=== PATIENT | male | born 1995 | race Two or more races ===

== ENCOUNTER 2020-10-03 06:22 | Emergency (ER) | payer SELFPAY ==
[~2020-10-03] VITALS: Ht 167.6 cm; Wt 85.7 kg
[2020-10-03 08:38] LABS: Basophils # (auto) 0.1 10 ^3/uL (0-0.2); Basophils % (auto) 0.8 % (0.0-2.0); Eosinophils # (auto) 0.2 10 ^3/uL (0-0.8); Eosinophils % (auto) 3.4 % (0.0-7.0); Hematocrit 42.8 % (41.0-53.0); Hemoglobin 14.6 g/dL (13.5-17.5); Lymphocytes # (auto) 1.7 10 ^3/uL (0.4-5.4); Lymphocytes % (auto) 24.4 % (10.0-50.0); Mean Corpuscular Hemoglobin 30.2 pg (28.0-32.0); Mean Corpuscular Hgb Conc. 34.1 g/dL (32.0-36.0); Mean Corpuscular Volume 88.7 fL (80.0-100.0); Monocytes # (auto) 0.7 10 ^3/uL (0-1.3); Monocytes % (auto) 9.7 % (0.0-12.0); Neutrophils # (auto) 4.4 10 ^3/uL (1.6-8.6); Neutrophils % (auto) 61.7 % (37.0-80.0); Nucleated Red Blood Cells % 0.1 %; Red Blood Cells 4.83 10^6/uL (4.5-5.90); Red Cell Distribution Width 13.6 % (11.8-14.3); White Blood Cell 7.1 10^3/uL (4.4-10.8)
[2020-10-03 08:47] LABS: BUN/Creatinine Ratio 11.6; Calcium 8.4 mg/dL (8.5-10.1)
[2020-10-03 11:54] VITALS: BP 114/70
== END 2020-10-03 11:30 | disposition home or self-care (01) ==
LOC: EDBD 06:22 → ER 06:22
DX: K52.9 Noninfective gastroenteritis and colitis, unspecified (principal); K76.0 Fatty (change of) liver, not elsewhere classified
CPT/HCPCS: 36415; 74176; 80048; 85025

== ENCOUNTER → 2024-04-04 | Outpatient (CLI) | payer BC ==
[2024-04-04 11:38] LABS: Urine Bacteria None Seen /hpf (None Seen)
[2024-04-04 11:43] LABS: Basophils # (auto) 0.1 10 ^3/uL (0-0.2); Basophils % (auto) 0.9 % (0.0-2.0); Eosinophils # (auto) 0.2 10 ^3/uL (0-0.8); Eosinophils % (auto) 2.5 % (0.0-7.0); Hematocrit 43.9 % (41.0-53.0); Hemoglobin 14.9 g/dL (13.5-17.5); Lymphocytes # (auto) 1.8 10 ^3/uL (0.4-5.4); Lymphocytes % (auto) 28.3 % (10.0-50.0); Mean Corpuscular Hemoglobin 29.8 pg (28.0-32.0); Mean Corpuscular Hgb Conc. 33.9 g/dL (32.0-36.0); Mean Corpuscular Volume 88.1 fL (80.0-100.0); Monocytes # (auto) 0.5 10 ^3/uL (0-1.3); Monocytes % (auto) 7.1 % (0.0-12.0); Neutrophils # (auto) 3.9 10 ^3/uL (1.6-8.6); Neutrophils % (auto) 61.2 % (37.0-80.0); Platelet Count (auto) 179 10^3/uL (140-450); Red Blood Cells 4.98 10^6/uL (4.5-5.90); Red Cell Distribution Width 13.8 % (11.8-14.3); White Blood Cell 6.4 10^3/uL (4.4-10.8)
[2024-04-04 12:01] LABS: Urine Blood Negative /uL (Negative); Urine Clarity Clear (Clear); Urine Mucus FEW (None Seen); Urine Protein, UAD TRACE (Negative); Urine Specific Gravity 1.036 (1.001-1.035); Urine Squamous Epithelial Cell FEW /hpf (<5); Urine Urobilinogen Normal (Negative); Urine WBC 1 /HPF (0-3); Urine pH 5.5 (5.0-9.0)
[2024-04-04 12:03] LABS: Urine Color Yellow (Yellow)
[2024-04-04 12:24] LABS: Erythrocyte Sedimentation Rate 8 mm/hr (0-20)
[2024-04-04 13:17] LABS: Alanine Aminotransferase 17 U/L (7-40); Alkaline Phosphatase 78 U/L (46-116); Anion Gap 8 (5-15); Aspartate Aminotransferase 17 U/L (13-40); BUN/Creatinine Ratio 13.9 (10.0-20.0); Blood Urea Nitrogen 15 mg/dL (9-23); Calcium 9.9 mg/dL (8.7-10.4); Carbon Dioxide 26 mmol/L (20-31); Chloride 106 mmol/L (98-107); Glucose 96 mg/dL (74-106); Potassium 4.2 mmol/L (3.5-5.1); Sodium 140 mmol/L (136-145); Triglycerides 110 mg/dL (< 150)
[2024-04-04 13:18] LABS: Bilirubin, Total 0.7 mg/dL (0.2-1.0); Cholesterol 198 mg/dL (< 200); Total Protein 7.5 g/dL (5.7-8.2)
[2024-04-04 13:20] LABS: Albumin 4.9 g/dL (3.2-4.8); HDL Cholesterol 35 mg/dL (40-59); LDL Cholesterol 147 mg/dL (< 100)
== END | disposition home or self-care (01) ==
LOC: LAB 11:23
PROVIDERS: ATTEND Internal Medicine
DX: M54.50 Low back pain, unspecified (principal); Z00.00 Encounter for general adult medical examination without abnormal findings
CPT/HCPCS: 36415; 80053; 80061; 81001; 84443; 85025; 85652